=== PATIENT | female | born 2000 | race Caucasian/White ===

== ENCOUNTER 2022-04-19 13:10 | Emergency (ER) | payer OTHER, SELFPAY ==
[2022-04-19 13:11] VITALS: BP 104/69; PULSE 84; RESP 16; TEMP 36.2; O2SAT 100; BMI 22.8
--- NOTE | 2022-04-19 13:20 | EKG12_ITS ---
Test Reason : CP Blood Pressure : / mmHG Vent. Rate : 077 BPM Atrial Rate : 077 BPM P-R Int : 132 ms QRS Dur : 092 ms QT Int : 416 ms P-R-T Axes : 071 -17 015 degrees QTc Int : 470 ms Normal sinus rhythm Normal ECG Confirmed by HARRISON GARDUNO, JH ([id number]), newspaper editor JOSEPH JONES ([id number]) on 04/23/2022 1:12:45 PM Referred By: JOSEFINA Confirmed By:JH TERRY MD
--- NOTE | 2022-04-19 13:24 | ED.RN ---
NO OLD EKGS
[2022-04-19 13:33] VITALS: O2SAT 96
--- NOTE | 2022-04-19 13:45 | RAD_ITS ---
STUDY: X-RAY CHEST REASON FOR EXAM: Female, 21 years old. Chest pain TECHNIQUE: Single AP portable view of the chest. COMPARISON: None. FINDINGS: EKG electrodes are seen. The lungs are clear and expanded. There is no demonstrated pleural abnormality. Normal size heart. Normal mediastinum and elfego. Normal visualized pulmonary arteries. Normal visualized aortic arch and descending thoracic aorta. Normal visualized thoracic spine. Normal visualized ribs, clavicles, and shoulders. There is no demonstrated abnormality of the visualized soft tissue structures of the upper abdomen. RAD/Chest 1 View (Portable) IMPRESSION: Normal x-ray examination of the chest. Electronically Signed: Darion Olivares MD at 13:56 EDT ,
[2022-04-19 13:53] LABS: Absolute Lymphocyte Count 1.83 X10^3/uL (0.83-4.51); Basophil# 0.03 X10^3/uL; Basophil% 0.3 % (0-1); Eosinophil# 0.12 X10^3/uL; Eosinophils% 1.4 % (0-5); Hematocrit 39.8 % (37-47); Hemoglobin 13.7 g/dL (12.0-15.0); Lymphocyte # 1.83 X10^3/ul (0.83-4.51); Mean Corp Hgb Conc 34.4 g/dL (32-36); Mean Corpuscular Hgb 30.2 pg (27.0-32.0); Mean Corpuscular Volume 87.7 fL (81-99); Mean Platelet Vol. 9.4 fl (6.2-12.0); Monocyte# 0.73 X10^3/uL; Monocyte% 8.4 % (0-10); NRBC Flagged by Analyzer 0 % (0-5); Neutrophil # 5.98 X10^3/uL (2.7-7.7); Neutrophil % 68.7 % (47-70); Platelet Count 260 K/mm3 (150-450); RBC Distribution Width CV 12.9 % (11.6-14.6); RBC Distribution Width SD 41.2 fl (35.1-43.9); Red Blood Count 4.54 M/mm3 (4.2-5.4); White Blood Count 8.7 K/mm3 (4.4-11.0)
[2022-04-19 14:05] LABS: Anion Gap 6 (5-15); BUN 7 mg/dL (7-18); Calcium,Total 9.2 mg/dL (8.5-10.1); Chloride 108 mmol/L (98-107); Creatinine, Serum 0.63 mg/dL (0.55-1.02); EST Glomerular Filtration Rate 125 mL/min (>60); Est Glom Filt Rate - Afr Amer 152 mL/min (>60); Estimated Creatinine Clearance 142.49 ml/min; Glucose 87 mg/dL (74-106); Potassium 3.8 mmol/L (3.5-5.1); Sodium Level 138 mmol/L (136-145); Troponin-I HS < 3 pg/mL (3.0-54.0)
--- NOTE | 2022-04-19 15:55 | EX.ED.DYSGE1 ---
HPI History of Present Illness Chief Complaint: Chest Pain Informant: patient Narrative Narrative: Patient presents with episodes of chest pain and some dyspnea. They for states this has been going on for about a week. The more I talk to them I find out this goes back through 3 or 4 years before she got . This is well in excess of 4 years of symptoms. It sounds like this has not been acutely evaluated throughout that time. Patient is currently . Symptoms seem to worsen. There is nothing specific that starts them. Sometimes activity does but not always. Symptoms come and go. No real coughing other than occasional dry cough from allergies which is typical. She has never been syncopal. No color change of extremities. Her father has a history of HOCM and they are concerned that she may have this 2. He did have septal surgery as well as a later valve replacement or repair. Patient has an appointment with a specialist in this area and cardiology up at [facility] this coming Saturday 8 days from now. She will be seeing Dr. Larson who is the same one that her father sees. At first they stated that the patient was just here on Saturday with the same symptoms. When I looked at her chart I find out she was not here. I talked to them again. Ends up she was at [facility]. The patient and family wanted to see if they can get an echocardiogram today. They wanted a 3D echo. I explained that I really do not have access to an acute echocardiogram. And with normal work-up and for years of symptoms I am not sure that is needed. I now find out that she had evidently a 2D echo of the heart just a few days ago that was evidently normal. I do not have access to this actual reading though. PFSH PFS Home Medications NK 04/19/22 [History Last Taken Unknown] Allergy/AdvReac Type Severity Reaction Status Date / Time No Known Allergies Allergy Verified 04/19/22 13:10 Social History Smoking Status: Never smoker ROS ROS ED Constitutional Constitutional ED: Denies chills or fever(s) Eyes Eyes: Denies change in vision ENT ENT ED: Denies rhinorrhea or sore throat Cardiovascular Cardiovascular: Reports chest pain; Denies orthopnea, palpitations, paroxysmal nocturnal dyspnea or racing heartbeat Respiratory/Chest Respiratory/Chest: Reports cough and dyspnea; Denies dyspnea on exertion, orthopnea, paroxysmal nocturnal dyspnea or sputum Gastrointestinal Gastrointestinal: Denies nausea or vomiting Genitourinary Genitourinary ED: Reports other Details: Currently . Musculoskeletal Musculoskeletal: Denies arthralgias or myalgias Integumentary Denies rash Neurologic Neurologic: Denies headache(s) Psychiatric Psychiatric: Denies anxiety or depression Endocrine Endocrinology: Denies polydipsia or polyuria Hematologic/Lymphatic Hematologic/Lymphatic: Denies easy bleeding or easy bruising Allergic/Immunologic Allergic/Immunologic ED: Denies urticaria EXAM Physical Exam Const Vital Signs: 04/19/22 13:11 04/19/22 13:33 04/19/22 13:34 Temperature 97.2 F L Temperature Source Temporal Pulse Rate 84 Respiratory Rate 16 Respiratory Effort Short of Breath Blood Pressure 104/69 Blood Pressure Mean 80 Pulse Ox 100 96 Oxygen Delivery Method Room Air Room Air Positive well nourished and well developed Constitutional Narrative: Patient sitting quietly in bed. Heart rate generally ranges about 65-70 is regular and normal sinus rhythm without ectopy. She looks very comfortable. Respiratory rate is normal. Saturations are normal. She has nontoxic. General Appearance ED: well developed and NAD; Negative for cyanotic, diaphoretic or pallor HEENT Reports moist mucous membranes Eyes EOMs intact bilaterally General Eye ED: Negative for scleral icterus Neck no JVD Neck Narrative: No JVD or stridor Chest Wall inspection of chest normal Resp normal respiratory effort and clear to auscultation bilaterally Resp Narrative: No pain with a deep breath. Auscultation: Negative for rales, rhonchi or wheezes Cardio regular rate, regular rhythm, S1 normal heart sound, S2 normal heart sound and no murmurs Rate: other Other Details: Heart tones sound normal. They are not distant. There is no murmur. There is no murmur with deep breaths or straining. Peripheral pulses are equal x4. ; Negative for bradycardia or tachycardic GI normal to inspection, nondistended, normoactive bowel sounds and non-tender Palpation: soft Back/Spine no CVA tenderness Extremity normal to inspection Extremity Narrative: No edema, cords, asymmetry. General Extremety ED: Negative for edema or tenderness General Extremity: Negative for edema Neuro oriented x3 Sensorium / Orientation: alert Psych mental status grossly normal Skin no rashes or lesions noted General Skin Exam: Negative for jaundice or pallor MDM MDM MDM Narrative Medical decision making narrative: Protocol orders have been placed. Chest x-ray showed no acute process. EKG showed no acute process. CBC electrolytes show no acute process. Troponin is unmeasurable. I talked with the patient and family. There is a concern is about the symptoms that have been ongoing with no firm diagnosis. I explained that they have been going on for 4 years. They have an appointment with a specialist that they have been trying to get in with. This appointment is in 8 days. Per their report they have a normal 2D echo of the heart at [facility] 3 days ago. I did tell them I am trying to reach their cutter and edge trimmer. I have called his office. I have left messages and talked with a office individual. They are paging Dr. Larson. I am awaiting that call. I have not been able to reach Dr. Larson. I discussed this with the patient and her mother who she did want me to discuss this with. Patient is comfortable sitting in bed. She is typing on a flip phone. She is breathing is unlabored. Her heart rate respiratory rate oxygenation and blood pressure is normal. I think it is okay she goes home. She has follow-up in 8 days. Mom does report that she had a echo/ultrasound of the heart done on Saturday which they said showed no abnormalities. I just cannot access the specifics of this. Lab Data Attestation: I reviewed the patient's lab results. Labs: Laboratory Results - last 24 hr 04/19/22 04/19/22 13:41 13:41 WBC 8.7 RBC 4.54 Hgb 13.7 Hct 39.8 MCV 87.7 MCH 30.2 MCHC 34.4 RDW Std Deviation 41.2 RDW Coeff of Izzy 12.9 Plt Count 260 MPV 9.4 Immature Gran % (Auto) 0.200 Neut % (Auto) 68.7 Lymph % (Auto) 21.0 Sierra % (Auto) 8.4 Eos % (Auto) 1.4 Baso % (Auto) 0.3 Absolute Neuts (auto) 6.0 Absolute Lymphs (auto) 1.83 Nucleated RBC % 0 Sodium 138 Potassium 3.8 Chloride 108 H Carbon Dioxide 24.0 Anion Gap 6 BUN 7 Creatinine 0.63 Estim Creat Clear Calc 142.49 Est GFR (MDRD) Af Amer 152 Est GFR (MDRD) Non-Af 125 BUN/Creatinine Ratio 11.0 Glucose 87 Calcium 9.2 Troponin I High Sens < 3 L Radiography Diagnostic Testing: Clinical Impression(s) from Imaging Studies Chest X-Ray 04/19/22 13:45 IMPRESSION: Normal x-ray examination of the chest. Electronically Signed: Darion Olivares MD at 13:56 EDT , Chest x-ray looked at by me and read by radiology shows no acute process EKG Initial EKG: Comments: EKG done for intermittent chest pain and dyspnea read by me shows a normal sinus rhythm with a rate of 77. No ventricular ectopy. There is T wave inversion in lead III which is a normal variant. No acute ST elevation or depression. MD interval, QRS duration are normal. QTc is a bit toward the longer end at 470 ms. I do not have a prior for comparison Discharge Plan Triage Chief Complaint: Chest Pain ED Provider: Miguelito Yoon Dx/Rx/DC Orders Clinical Impression: Chest pain, Dyspnea Instructions: ED Chest Pain, Uncertain Cause Prescriptions: No Action NK Primary Care Provider: Care Physician,No Primary Referrals: Care Physician,No Primary [Primary Care Provider] - Activity Restrictions/Additional Instructions: Follow-up with Dr. Larson as scheduled. Disposition Disposition: Home, Self Care
[2022-04-19 16:51] VITALS: BP 95/72; PULSE 76; RESP 18; O2SAT 98
== END 2022-04-19 16:59 | disposition home or self-care (01) ==
PROVIDERS: Emergency Provider Emergency Medicine; Visit Provider Emergency Medicine
DX: O99.891 Other specified diseases and conditions complicating pregnancy (principal); R07.9 Chest pain, unspecified; R06.00 Dyspnea, unspecified; Z3A.00 Weeks of gestation of pregnancy not specified
CPT/HCPCS: 71045; 80048; 84484; 85025; 93005; 99284; A4216